=== PATIENT | female | born 1975 | race Hispanic/Latino ===

== ENCOUNTER 2021-11-01 10:34 | Emergency (ER) | payer BC ==
[2021-11-01] VITALS (25 sets, daily range): BP systolic 114–147; BP diastolic 71–93
[~2021-11-01] VITALS: Ht 157.5 cm; Wt 81.0 kg
[~2021-11-01 10:34] MED LIST: NAPROSYN375 MG PO; NO HOME MEDS; ONDANSETRON4 MG PO; PRILOSEC OTC20 MG OR; ULTRAM50 M1 PO; ZOFRAN ODT8 MG SL
[2021-11-01 11:21] LABS: HEMATOCRIT 40.2 % (37.0-47.0); IMMATURE GRANULOCYTES 0.4 % (0.0-5.0); MEAN CELL VOLUME 89.5 fL CALC (80.0-100.0); MEAN CORPUSCULAR HGB 31.2 pG CALC (26.0-32.0); MEAN CORPUSCULAR HGB CONC 34.8 g/dL CAL (32.0-36.0); NEUT# 7.11 thou/uL (2.00-7.15); RED BLOOD COUNT 4.49 mill/uL (4.20-5.60); RED CELL DISTRI WIDTH 13.1 % (11.5-15.5)
[2021-11-01 11:42] LABS: ALBUMIN 4.6 g/dL (3.2-5.0); ALKALINE PHOSPHATASE 77 u/l (38-126); ANION GAP 16 (6-22 (CALC)); BILIRUBIN, TOTAL 0.6 mg/dL (0.0-1.4); BUN 12 mg/dL (7-17); BUN/CREATININE RATIO 17 (12-20 (CALC)); CARBON DIOXIDE 21 mmol/l (22-30); CHLORIDE 105 mmol/l (95-108); CREATININE 0.7 mg/dL (0.5-1.0); GFR FOR AFR.AMER. > 60 ML/MIN (>=60 (CALC)); GFR OTHER RACES > 60 ML/MIN (>=60 (CALC)); LIPASE 59 u/l (23-300); POTASSIUM 4.3 mmol/l (3.5-5.1); SGOT/AST 38 u/l (14-36); SODIUM 137 mmol/l (137-146); TOTAL PROTEIN 8.1 g/dL (6.3-8.2)
[2021-11-01 12:49] LABS: URINE BILIRUBIN - DIPSTICK NEGATIVE (NEGATIVE); URINE BLOOD DIPSTICK NEGATIVE (NEGATIVE); URINE COLOR YELLOW; URINE GLUCOSE - DIPSTICK NEGATIVE (NEGATIVE); URINE KETONE NEGATIVE (NEGATIVE); URINE LEUK ESTERASE TRACE (NEGATIVE); URINE PH 5.5 (4.5-8.0); URINE PROTEIN - DIPSTICK NEGATIVE (NEG-TRACE); URINE SPECIFIC GRAVITY 1.025; URINE UROBILINOGEN - DIPSTICK 0.2 E.U./dL (0.2)
[2021-11-01 12:59] LABS: URINE NITRITE - DIPSTICK NEGATIVE (Negative)
[2021-11-01 13:12] LABS: URINE SQUAMOUS EPITHELIAL CELL MODERATE EPI/hpf (0-FEW)
[2021-11-01 13:13] LABS: URINE BACTERIA MANY hpf
[2021-11-01] MEDS ORDERED: DICYCLOMINE HCL20 MG PO (17:52)
== END 2021-11-01 18:44 | disposition home or self-care (01) | DRG 392 ==
LOC: ED 10:34
PROVIDERS: Internal Medicine
DX: R10.9 Unspecified abdominal pain (principal)

== ENCOUNTER 2023-09-19 17:23 | Emergency (ER) | payer BC ==
[~2023-09-19] VITALS: Ht 157.5 cm; Wt 70.0 kg
[~2023-09-19 17:23] MED LIST changes: +DICYCLOMINE HCL20 MG PO
[2023-09-19] MEDS ORDERED: AMOX/K CLAV875 M1 PO (19:56)
[2023-09-19 19:59] VITALS: BP 141/75
[2023-09-19 20:00] VITALS: BP 131/80
[2023-09-19 20:11] VITALS: BP 131/80
== END 2023-09-19 20:15 | disposition home or self-care (01) | DRG 153 ==
LOC: ED 17:23
DX: H66.91 Otitis media, unspecified, right ear (principal)

== ENCOUNTER 2024-03-27 18:01 | Emergency (ER) | payer BC ==
[~2024-03-27] VITALS: Ht 157.5 cm; Wt 87.0 kg
[~2024-03-27 18:01] MED LIST changes: +AMOX/K CLAV875 M1 PO
[2024-03-27 18:44] VITALS: BP 171/110
[2024-03-27 18:45] VITALS: BP 170/100
[2024-03-27 19:00] VITALS: BP 170/95
[2024-03-27 19:15] VITALS: BP 178/103
[2024-03-27 19:21] VITALS: BP 175/104
[2024-03-27] MEDS ORDERED: TAM75CAP PO (19:45)
[2024-03-27] MEDS ORDERED: VENTOLIN HFA108 MCG IN (19:45)
[2024-03-27 20:00] VITALS: BP 175/104
== END 2024-03-27 20:45 | disposition home or self-care (01) | DRG 195 ==
LOC: ED 18:01
DX: J10.1 Influenza due to other identified influenza virus with other respiratory manifestations (principal); Z20.822 Contact with and (suspected) exposure to COVID-19